=== PATIENT | female | born 1945 | race Caucasian/White ===

== ENCOUNTER 2017-04-03 05:22 | Day surgery (SDC) | payer OTHER ==
[~2017-04-03] VITALS: Ht 147.3 cm; Wt 63.2 kg
--- NOTE | ~2017-04-03 | EKG ---
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
--- NOTE | ~2017-04-03 | S ---
[facility] [place] [address] SURGICAL PATH RPT PROCEDURE Name: CARLI SMITH MADYSON Room #: [facility] M.R.#: [id number] Admission: 04/03/17 Date of : 45 Discharge: 04/03/17 Report #: [id number] Path Case #: [id number] PATHOLOGY REPORT COLLECTION DATE: 04/03/2017 RECEIVED DATE: 04/03/2017 SUBMITTING PHYS: Dr. Benja Noel OTHER PHYS: Dr. Gurdeep Hoover SPECIMEN(S) RECEIVED: A.Sinus contents * * * * * * * * * * * * FINAL DIAGNOSIS: "Sinus contents," evacuation: - Chronic sinusitis with no significant eosinophilia. - Underlying bony fragments with mild reactive changes. (CLW:; d/t: 04/06/17) PATHOLOGIST: Patti Manley M.D. REPORT ELECTRONICALLY SIGNED BY: Patti Manley M.D. DATE/TIME: 04/06/2017 20:43 * * * * * * * * * * * * GROSS PATHOLOGY: Received in formalin labeled "Carli Smith, sinus contents," is a 2.6 x 1.3 x 0.3 cm aggregate of multiple fragments light salmeron bone with adherent soft tissue. The specimen is submitted entirely in cassette A1, following decalcification. (KAH; 04/04/2017) CLINICAL HISTORY: Chronic sinusitis INITIAL CPT CODE(S): A; 12470, 79850 Professional services performed by [facility] at [facility] [address] [place] [address] Technical services performed by [facility] at [address] [place] [id number]. [facility] [address] [place] [address] SURGICAL PATH RPT PROCEDURE Name: CARLI SMITH MADYSON Room #: [facility]P [facility] Bebo#: [id number] Admission: 04/03/17 Date of : 45 Discharge: 04/03/17 Report #: [id number] Path Case #: [id number] [facility] [address] PHONE: [phone] DIRECTOR: Hussein Garcia M.D. * * * END OF REPORT * * *
--- NOTE | ~2017-04-03 | H ---
[facility] [place] [address] HISTORY AND PHYSICAL Name: GARO FRANKLIN MADYSON Room #: [facility] M.R.#: [id number] Admission: 04/03/17 Attend Phys: Benja Noel MD Discharge: 04/03/17 Date of : 45 Report #: [id number] THIS REPORT FOR: //name// CC: Gurdeep Noel DATE OF SERVICE: 04/03/2017 DATE OF SURGERY: 04/03/2017 CHIEF COMPLAINT: Chronic rhinosinusitis. HISTORY OF PRESENT ILLNESS: The patient is a 71-year-old female, originally presented in December 2016 complaining of maxillary discomfort and swelling. This is on the right side. She noted that she has recurrent swelling over the right maxillary skin without any other visible obstructions. She noted the right side can swell up on a regular basis every day and has been present for several years, typically resolves after being upright for several hours. At that time, I had recommended a CT scan of the sinuses to be obtained to look for any type of process within the sinonasal region. Of note, it was found at that time, she had substantial sinusitis on the right side. At that point, I had recommended a trial of antibiotic therapy for approximately 3 weeks. After completing the antibiotic, she did not feel any change in her conditions, although she thought it might be slightly better with antibiotics. Recommended continuing of more antibiotics for another 2 weeks, which would give her a total of 30 days of antibiotics consecutively. At that time, we completed a CT scan of her sinuses with a second CT performed on March 13. The CT scan did demonstrate clear frontal sinuses. There is persistent opacification of few of the lateral posterior ethmoid air cells. There remained thickened frothy secretions within the left maxillary sinus and thickening sclerosis of the medial prince of right maxillary sinus. There is a question of interval development of mucus membrane thickening in the lateral inferior right sphenoid sinus and whether this has any clinical significance. Given the findings of continued sinus disease despite over 30 days of antibiotics, I gave her the option of surgical therapy for which we would include a right ethmoidectomy, excision of the zuleima bullosa, left nasoantral window and exploration of the right sphenoid ostia to see if it is patent versus continued medical therapy. I discussed with her the risks involved with surgery included the expected benefits and the risks and options of medical therapy. At this point, she is in agreement to proceed forward with surgical therapy. ALLERGIES TO MEDICATION: Include DOXYCYCLINE, SULFA, ERYTHROMYCIN. MEDICATIONS ON ADMISSION: Include alendronate 70 mg once a day, atorvastatin 10 mg once a day, losartan 25 mg once a day, oxybutynin chloride extended release 10 mg once a day. [address] [address] HISTORY AND PHYSICAL Name: GARO FRANKLIN MADYSON Room #: [facility]P [facility] M.R.#: [id number] Admission: 04/03/17 Attend Phys: Benja Noel MD Discharge: 04/03/17 Date of : 45 Report #: [id number] PAST MEDICAL AND SURGICAL HISTORY: Notable for appendectomy, extraction of wisdom teeth, and adenotonsillectomy. FAMILY HISTORY: Unremarkable. REVIEW OF SYSTEMS: Positive for a pack a day tobacco use and occasional social use of alcohol. PHYSICAL EXAMINATION: VITAL SIGNS: She is 5 feet tall and 135 pounds. Blood pressure last recorded 157/68. HEENT: Does reveal left-sided nasal septal deformity, modest mucous membrane inflammation was noted within the nasal vaults. Oral cavity and oropharynx is unremarkable aside from surgically absent tonsils. NECK: Palpated normally. CHEST: Clear. CARDIOVASCULAR: Regular rate, regular rhythm. ASSESSMENT: History of chronic rhinosinusitis, unresponsive to a month of antibiotic therapy with ____ positive disease. PLAN: Will be for the above-mentioned sinus surgery. By: 17 2219 Benja Noel MD /nt
--- NOTE | ~2017-04-03 | O ---
[facility] [place] [address] OPERATIVE REPORT Name: GARO FRANKLIN MADYSON Room #: [facility] M.R.#: [id number] Admission: 04/03/17 Attend Phys: Benja Noel MD Discharge: 04/03/17 Date of : 45 Report #: [id number] THIS REPORT FOR: //name// CC: Gurdeep Noel DATE OF SERVICE: 04/03/2017 PREOPERATIVE DIAGNOSIS: Sinusitis. POSTOPERATIVE DIAGNOSIS: Sinusitis. PROCEDURE: 1. Image-guided functional endoscopic sinus surgery. 2. Left nasal antral window with removal of contents. 3. Excision of right zuleima bullosa endoscopically. 4. Right ethmoidectomy. SURGEON: Benja Noel M.D. ANESTHESIA: General LMA. INDICATIONS: Please see H and P. FINDINGS: Thick inspissated white glue-like mucus was removed from the left maxillary ostia and from some very posterior ethmoid air cells. The sphenoid ostia was patent on the right side. There was no mucosal disease noted. TECHNIQUE: After obtaining consent, she was brought to the operating suite. Appropriate time-out was performed. General LMA anesthesia was obtained. The bed was turned 90 degrees, placed in a slight head up position. The face was prepped and draped in the usual sterile fashion. Cottonoids soaked with Afrin were placed in the nares for vasoconstriction. Later in the case, an additional 5 mL local anesthetic was equally divided between the 2 nasal passages injected along the lateral nasal wall, the uncinate process and the middle turbinates. The Kapture image guidance system was registered appropriately and accuracy was confirmed. The left side was first addressed, intubating the nares with a 30-degree scope. The middle turbinate was visualized and medialized with a Niles elevator. The uncinate process and the inferior portion was brought forward with a double ball and removed in its inferior portion with the side biter. Using a double ball, I was able to easily enter into the middle meatus. This was enlarged inferiorly and slightly anteriorly with the side biter and microdebrider. Using a curved suction, I then entered into the maxillary ostium, removing some very thick [facility] [address] [place] [address] OPERATIVE REPORT Name: GARO FRANKLIN [facility] Room #: [facility] M..#: [id number] Admission: 04/03/17 Attend Phys: Benja Noel MD Discharge: 04/03/17 Date of : 45 Report #: [id number] inspissated mucus that was not purulent in nature. The mucosa appeared unremarkable. The edges of the antrostomy were freshened with a microdebrider. A hemostatic Xerogel was placed in the middle meatus. I turned my attention to right naris, where again using a 30-degree scope, the nares was intubated. 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 I entered into the zuleima bullosa on the anterior and anterior inferior surface with a combination of a sickle knife, caudal elevator and then a Niles. I then used a combination of 0-degree Kevan-Cut forceps and endoscopic scissors to amputate the lateral two-thirds of the zuleima bullosa. This allowed for great visualization of the ethmoid bulla. I did probe the maxillary ostia and it was found to be widely patent. The anterior ethmoid bulla was entered with a microdebrider and followed back to the anterior ethmoid air cells. Normal mucosa was encountered. Once I evaluated through the ground lamella, I entered into very polypoid-appearing mucosa and immediately encountered some very thick non-purulent secretions, which were removed from the lateral posterior ethmoid air cells and one large posterior ethmoid air cell that did not appear to be involved on the CT scan. Upon evacuation of the mucosa, I then enlarged some of the cells there and removed the devitalized mucosa. Remainder of the mucosa and posterior ethmoids appeared unremarkable, so they were not fully evolved. I then lateralized the middle turbinate as well as lateralized the superior/supreme turbinate and with the suction as a guide, I was able to advance the 30-degree scope back to the sphenoid face. It was easy to visualize a patent sphenoidotomy, which I was able to pass the suction into without any secretions coming out. Given the fact it was already visually patent, I did not enlarge it further. I then took a piece of Xerogel in the right middle meatus. I then checked the nasopharynx for any secretions; it was dry. The nasal cavity itself was dry. At this point, she was allowed to awaken from anesthesia, having completed the surgery, to the recovery room in stable condition. ESTIMATED BLOOD LOSS: 10 mL. By: 1105 1212 Benja Noel MD /ellie
[~2017-04-03 05:22] MED LIST: ALENDRONATE SOD70 MG PO; CENTRUM SILVER1 EAC4 PO; CITRACAL + D E1 EACH PO; COZAAR 25 MG TA25 M1 PO; DITROPAN XL10 MG PO; FISH OIL 1,001000 M2 PO; IBUPROFEN 200200 M1 PO; LIPITOR10 MG PO; MOVE FREE JOIN1 EACH PO; NEXIUM40 MG PO; VITAMIN D1000 UNIT PO
[2017-04-03 08:04] VITALS: BP 129/85
[2017-04-03 11:11] VITALS: BP 129/85
== END 2017-04-03 12:00 | disposition home or self-care (01) ==
LOC: OR 05:22 → TBA 05:23 → OR 11:42
DX: J32.8 Other chronic sinusitis (principal); I10 Essential (primary) hypertension; K21.9 Gastro-esophageal reflux disease without esophagitis; F17.210 Nicotine dependence, cigarettes, uncomplicated; Z90.49 Acquired absence of other specified parts of digestive tract; Z98.890 Other specified postprocedural states; Z88.2 Allergy status to sulfonamides; Z88.8 Allergy status to other drugs, medicaments and biological substances; Z79.899 Other long term (current) drug therapy
CPT/HCPCS: 50010; 50101; 50286; 50386; 50398; 50426; 50573; 52290; 52291; 53618; 62110; 62900; 70005

== ENCOUNTER → 2017-07-06 | Outpatient (CLI) | payer OTHER | LOC: RAD 02:57 | DX: Z12.31 Encounter for screening mammogram for malignant neoplasm of breast (principal) ==

== ENCOUNTER → 2018-07-19 | Outpatient (CLI) | payer OTHER | LOC: NUC 08:29 | DX: Z13.820 Encounter for screening for osteoporosis (principal); N91.2 Amenorrhea, unspecified; Z78.0 Asymptomatic menopausal state ==

== ENCOUNTER → 2018-11-04 | Outpatient (CLI) | payer OTHER ==
[~2018-11-04] VITALS: Ht 147.3 cm; Wt 65.8 kg
[~2018-11-04] MED LIST changes: +APAP650 PO
--- NOTE | 2018-11-05 15:06 | PATH ---
[facility] [address] [place] [address] PATHOLOGY RPT PROCEDURE Name: CARLI SMITH MADYSON Room #: [facility] Bebo#: [id number] Admission: 11/04/18 Date of : 45 Discharge: Report #: [id number] Path Case #: [id number] [facility] Accession Number: [id number] . 01 Material submitted: . POLYP AT CECUM X2 . 01 Clinical history: . History of polyps Colon polyps, diverticulosis, hemorrhoids . 02 Diagnosis: Polyp x2, at cecum, endoscopic biopsy: - One fragment showing tubular adenoma without high-grade dysplasia. - Second fragment showing reactive hyperplastic mucosa without dysplasia. 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 02 Electronically signed: . Tonya Velazquez MD, Pathologist NPI- [id number] . 01 Gross description: . The specimen is received in formalin, labeled "Carli Smith Madyson, polyp at cecum x2" and consists of 2 fragments of soft salmeron tissue measuring 0.5 x 0.2 x 0.1 cm and 0.8 x 0.2 x 0.1 cm. They are entirely submitted in A1. (SDY; 11/04/2018) SYU/SYU . 02 Pathologist provided ICD-10: D12.0 . 02 CPT . 610666 Specimen Comment: A courtesy copy of this report has been sent to Specimen Comment: [phone], . Specimen Comment: Report sent to and Performed at: [address], [place] [id number] MD Jorge Alberto Sotomayor MD Phone: [phone] Performed at: [address] [id number] MD Tonya Velazquez MD Phone: [phone]
--- NOTE | 2018-11-06 05:38 | P ---
[facility] [place] [address] PROCEDURE REPORT Name: GARO FRANKLIN MADYSON Room #: [facility].#: [id number] Admission: 11/04/18 Attend Phys: Teodoro Caal MD Discharge: Date of : 45 Report #: [id number] THIS REPORT FOR: //name// CC: JESSICA Caal BRIEF HISTORY: The patient is a 73-year-old woman for high risk screening with a history of colon polyps. POSTOPERATIVE DIAGNOSES: 1. Diminutive cecal polyps x 2. 2. Moderate sigmoid diverticulosis coli. 3. Internal hemorrhoids. MEDICATIONS: Deep sedation with propofol per anesthesia. SPECIMEN: Cecal polyps. ESTIMATED BLOOD LOSS: 3 mL. PROCEDURE: Colonoscopy to cecum and terminal ileum with biopsy. FINDINGS: Prior to propofol sedation, the procedure of colonoscopy discussed with the patient as well as potential risks and its complications. She indicates she understands and desires to proceed. DESCRIPTION OF PROCEDURE: With the patient in left lateral decubitus position, digital examination was completed, which revealed no abnormalities. Subsequently, the Olympus video colonoscope was introduced in the rectum, advanced under direct vision to the cecum. This was done with minimal difficulty. Cecum was identified by the ileocecal valve and the appendiceal orifice. I was able to visualize the distal segment of terminal ileum, which was inspected and noted to be unremarkable. At that point, scope was slowly withdrawn and careful circumferential views obtained including retroflexing the scope in the ascending colon. Upon slow withdrawal of the scope, the prep was excellent. The mucosa was within normal limits, normal vascular pattern, normal light reflex. As we withdrew the scope, 2 diminutive polyps were seen and removed with biopsy forceps in the cecum. The scope was further withdrawn and no further neoplastic lesions were seen on this examination. As we withdrew the scope, a few scattered diverticula were seen in the proximal colon. There was noted to be gnjr-ya-xrullrat diverticular disease in the sigmoid colon without endoscopic evidence of diverticulitis. The scope was withdrawn in the rectum. No abnormalities were seen. Upon retroflexion, [id number] internal hemorrhoids were seen. Scope was withdrawn. The patient tolerated the procedure well. [facility] [address] [place] [address] PROCEDURE REPORT Name: GARO FRANKLIN [facility] Room #: [facility].#: [id number] Admission: 11/04/18 Attend Phys: Teodoro Caal MD Discharge: Date of : 45 Report #: [id number] CONDITION OF THE PATIENT UPON DISCHARGE: Following procedure, the patient drowsy, arousable and conversant and will be discharged home when fully ambulatory. INSTRUCTIONS TO THE PATIENT AND FAMILY AT THE TIME OF DISCHARGE: The patient with history of polyps, 2 small polyps identified and removed today. We will follow up on the path. If one or both polyps are adenomas, she should return in 5 years; if neither is an adenoma, then 10 years would be indicated. Last colonoscopy was more than 3 years ago. Withdrawal time from the cecum was 9 minutes 57 seconds. <ELECTRONICALLY SIGNED> By: Teodoro Caal MD 11/06/18 0538 [id number] Teodoro Caal MD /nt
== END | disposition home or self-care (01) ==
LOC: GI 06:36
DX: Z12.11 Encounter for screening for malignant neoplasm of colon (principal); Z86.010 Personal history of colon polyps; D12.0 Benign neoplasm of cecum; K63.5 Polyp of colon; K57.30 Diverticulosis of large intestine without perforation or abscess without bleeding; K64.8 Other hemorrhoids; K21.9 Gastro-esophageal reflux disease without esophagitis; I10 Essential (primary) hypertension; F17.210 Nicotine dependence, cigarettes, uncomplicated; Z90.49 Acquired absence of other specified parts of digestive tract; Z98.890 Other specified postprocedural states; Z79.899 Other long term (current) drug therapy; Z88.2 Allergy status to sulfonamides; Z88.8 Allergy status to other drugs, medicaments and biological substances
CPT/HCPCS: 62110; 62900

== ENCOUNTER → 2019-07-11 | Outpatient (CLI) | payer OTHER | LOC: BC 08:47 | DX: Z12.31 Encounter for screening mammogram for malignant neoplasm of breast (principal) ==

== ENCOUNTER → 2020-07-12 | Outpatient (CLI) | payer OTHER | LOC: BC 09:12 | PROVIDERS: ATTEND Internal Medicine | DX: Z12.31 Encounter for screening mammogram for malignant neoplasm of breast (principal) ==

== ENCOUNTER → 2021-07-15 | Outpatient (CLI) | payer OTHER | LOC: BC 09:21 | PROVIDERS: ATTEND Internal Medicine | DX: Z12.31 Encounter for screening mammogram for malignant neoplasm of breast (principal) ==